=== PATIENT | male | born 1960 | race Caucasian/White ===

== ENCOUNTER 2017-11-14 19:48 | Emergency (ER) | payer OTHER, SELFPAY ==
[2017-11-14 19:50] VITALS: BP 151/85; PULSE 94; RESP 18; TEMP 36.9; O2SAT 96; BMI 40.0
--- NOTE | 2017-11-14 21:55 | ED.DCSUM_ITS ---
- ER Visit Summary Date of Service: 11/14/17 Chief Complaint: Tick bite History of Present Illness: The patient is a 57 M take bite right upper chest. Seems to take was there since 2 PM yesterday. Got a shower today noticed on there. Spouse tried to remove it with tweezers. However the head broke. is digging at this. States it was not a large size. Has had this happen before. No fevers. Immunizations up-to-date. Physical Examination: General: Alert and oriented ?3, no acute distress HEENT: Normocephalic, atraumatic. Moist mucosa membranes Neck: supple, nontender. Cardiovascular: Regular rate and rhythm, no murmurs. Right upper chest: Residual black foreign body with small ecchymosis around the skin. No active bleeding. Respiratory: Normal breath sounds, symmetric, no distress Abdomen: Soft, nontender, nondistended Extremities: Nontender, no edema, pulses intact ?4 Neuro: no focal neurological deficits. Test Results: [] Emergency Department Course and Treatment: There is no surrounding erythema. There is only residual piece of tick remaining. The head was not intact. It was the findings. Both were removed with no difficulties. There is no engorgement of the tic. No indication for empiric treatment with antibiotics. Wound care discussed with the patient. Follow-up as needed. Treatment Plan: [] Disposition: Discharge Impression: Tick bite removed This note was generated with [employer] dictation software. It may contain incorrect words, spelling, and punctuation that were not noted in review of the chart prior to signing ED Disposition - Plan for ED Patient: Disposition: Home or Assisted Living Chief Complaint: Bite Diagnosis: Tick bite Instructions: ED Bite Tick No Abx Tx Referrals: Edmar Mcwilliams MD [Primary Care Provider] - 5-7 Days
== END 2017-11-14 22:25 | disposition home or self-care (01) ==
PROVIDERS: Emergency Provider Emergency Medicine; Family Provider Family Medicine; PCP Family Medicine
DX: S20.361A Insect bite (nonvenomous) of right front wall of thorax, initial encounter (principal); W57.XXXA Bitten or stung by nonvenomous insect and other nonvenomous arthropods, initial encounter; Y93.9 Activity, unspecified; Y92.9 Unspecified place or not applicable; Y99.9 Unspecified external cause status; I10 Essential (primary) hypertension
CPT/HCPCS: 99282

== ENCOUNTER 2022-01-06 15:49 | Emergency (ER) | payer OTHER, SELFPAY ==
[2022-01-06 15:50] VITALS: BP 156/88; PULSE 61; RESP 17; TEMP 36.6; O2SAT 97; BMI 43.4
--- NOTE | 2022-01-06 16:12 | VDLE_ITS ---
Reason For Study: pain Procedure LEFT This is a venous duplex using B-mode, color CFV is compressible, spontaneous, phasic, flow and spectral Doppler. competent, and demonstrates normal Exam performed portable in ED. augmentation. The exam was abbreviated due to the COVID 19 FV is compressible, spontaneous, phasic, protocol. competent and demonstrates normal The exam was diagnostic. augmentation. A preliminary report was called and/or faxed POP V is compressible, spontaneous, phasic, to Dr. Bailon. competent and demonstrates normal augmentation. T/P Trunk is compressible. PTV is compressible. LT PerV is compressible. GSV is dilated and noncompressible from the ankle to the distal thigh. Varicose veins below the knee are dilated and noncompressible. VL/Venous Duplex US, Unilateral Interpretation Summary There is no evidence of left lower extremity deep vein thrombosis. Superficial thrombophlebitis left great saphenous vein from the ankle to the distal thigh with involvement of bel ow the knee varicosities. Abbreviated COVID-19 protocol utilized Ordering Physician: Arthur Bailon Performed By: Malachi Landry RVJeffery
--- NOTE | 2022-01-06 16:15 | ED.VIS.LOWEX ---
HPI History of Present Illness Chief Complaint: Lower Extremity Injury Narrative Narrative: Left calf achiness discomfort past few days. History of varicose veins. History of thrombophlebitis 20 years ago. Does not follow vascular surgeon. No history of DVTs. No chest pains or shortness of breath. He went on a drive this past Wednesday after symptoms started returned yesterday to continue working back for a fishing trip. There is been no worsening pain. Reports some redness noted along the area of pain. Prior similar symptoms: Yes [facility] Medical History (Updated 01/07/22 @ 01:[address] Arthur Bailon DO) Former smoker Hypertension Kidney stones Allergy/AdvReac Type Severity Reaction Status Date / Time bee venom protein (honey bee) Allergy Other Verified 01/06/22 15:53 Social History Smoking Status: Former smoker ROS ROS ED Constitutional Constitutional ED: Denies chills, fever(s) or sweats Eyes Eyes: Denies change in vision ENT ENT ED: Denies dysphagia or sore throat Cardiovascular Cardiovascular: Denies chest pain, leg edema, palpitations or racing heartbeat Respiratory/Chest Respiratory/Chest: Denies cough, dyspnea or dyspnea on exertion Gastrointestinal Gastrointestinal: Denies abdominal pain, diarrhea, nausea or vomiting Genitourinary Genitourinary ED: Denies dysuria, hematuria or urinary frequency Musculoskeletal Musculoskeletal: Reports extremity pain and other Details: Left calf pain. ; Denies back pain or neck pain Integumentary Denies rash or wounds Neurologic Neurologic: Denies headache(s), paresthesias or weakness EXAM Physical Exam Const Vital Signs: 01/06/22 15:50 01/06/22 17:11 Temperature 97.8 F Temperature Source Temporal Pulse Rate 61 72 Respiratory Rate 17 15 Blood Pressure 156/88 H 126/89 H Blood Pressure Mean 110 Pulse Ox 97 98 Oxygen Delivery Method Room Air Positive well nourished and well developed General Appearance ED: well developed and NAD HEENT Reports moist mucous membranes normocephalic and atraumatic Eyes PERRL, EOMs intact bilaterally and conjunctivae normal General Eye ED: Yes normal appearance of both eyes Neck no lymphadenopathy and supple General: Negative for tenderness Chest Wall Chest: Negative for tenderness Resp normal respiratory effort and normal air movement Effort and Inspection: symmetric chest movement; Negative for respiratory distress Cardio regular rate, regular rhythm and no murmurs Peripheral Pulses: pulses 2+ throughout GI normal to inspection, nondistended, normoactive bowel sounds and non-tender Palpation: Negative for guarding or rebound tenderness present Back/Spine no CVA tenderness and no thoracic nor lumbar tenderness Extremity normal to inspection Extremity Narrative: Left lower extremity: Tenderness along the lower medial aspect of the calf down the leg there is erythema, there was nodules palpated mildly tender. No direct posterior calf pain or popliteal pain. No medial thigh pain. Neuro vas intact distally. General Extremety ED: Yes tenderness; Negative for edema General Extremity: Negative for edema Neuro oriented x3 and no sensory deficits noted Sensorium / Orientation: awake and alert Skin no rashes or lesions noted and no wounds MDM MDM MDM Narrative Medical decision making narrative: Clinical exam concerns for a superficial thrombophlebitis along the medial aspect of the calf. Ultrasound will be obtained to rule out any deep vein thrombosis. Ultrasound results negative for DVT he notes superficial thrombus of the greater saphenous vein from the ankle to the distal thigh along with varicose vein below the knee. Patient will use his compression stockings discussed ibuprofen as needed. Return precautions of worsening symptoms develop. He is given follow-up with vascular surgery as an outpatient. All questions were answered. Discharge Plan Triage Chief Complaint: Lower Extremity Injury ED Provider: Arthur Bailon Dx/Rx/DC Orders Clinical Impression: Superficial thrombophlebitis of left leg, Varicose veins of both lower extremities Instructions: ED Thrombophlebitis, Superficial Primary Care Provider: Edmar Mcwilliams Referrals: Glenn Degroot MD [STAFF PHYSICIAN] - 1 Week Edmar Mcwilliams MD [Primary Care Provider] - Disposition Disposition: Home, Self Care Discharge Date/Time: 01/06/22 17:12
[2022-01-06 17:11] VITALS: BP 126/89; PULSE 72; RESP 15; O2SAT 98
== END 2022-01-06 17:12 | disposition home or self-care (01) ==
PROVIDERS: Emergency Provider Emergency Medicine; PCP Family Medicine; Visit Provider Emergency Medicine
DX: I80.02 Phlebitis and thrombophlebitis of superficial vessels of left lower extremity (principal); I83.93 Asymptomatic varicose veins of bilateral lower extremities; I10 Essential (primary) hypertension; Z87.891 Personal history of nicotine dependence; Z87.442 Personal history of urinary calculi
CPT/HCPCS: 93971; 99282